=== PATIENT | female | born 1960 | race African-American/Black ===

== ENCOUNTER 2016-11-04 17:10 | Observation (INO) | payer MEDICARE, MEDICAID ==
[~2016-11-04] VITALS: Ht 162.6 cm; Wt 174.0 kg
[~2016-11-04 17:10] MED LIST: AMLO10 PO; ASPI-110 PO; CALC667C PO; NOVO7030P2 SQ; PERC5TAB12 PO; PLAV75TA29 PO; PRAV20TA2 PO
[2016-11-04 17:22] VITALS: BP 174/83; PULSE 76; RESP 16; TEMP 98.4; O2SAT 99
[2016-11-04] MEDS ORDERED: SODIUM CHLORIDE 0.9% FLUSH 10 ML FLUSH IVF PRN (17:45)
[2016-11-04] MEDS ORDERED: VITA100018 PO (17:51)
[2016-11-04] MEDS ORDERED: HUMU70IN SQ (17:51)
[2016-11-04] MEDS ORDERED: PANT40TA3 PO (17:51)
[2016-11-04 18:14] LABS: AUTOMATED NEUTROPHIL # 3.2 TH/MM3 (1.8-7.7); BASOPHIL % 0.8 % (0.0-2.0); EOSINOPHIL # 0.3 TH/MM3 (0-0.4); EOSINOPHIL % 4.1 % (0.0-4.0); HEMATOCRIT 36.4 % (35.0-46.0); HEMO FLAGS DIFF FINAL; LYMPH % 35.2 % (9.0-44.0); LYMPHOCYTE # 2.3 TH/MM3 (1.0-4.8); MEAN CELL VOLUME 90.5 FL (80.0-100.0); MEAN CORPUSCULAR HGB CONC 33.2 % (32.0-36.0); MONO % 10.9 % (0.0-8.0); PLATELET COUNT 135 TH/MM3 (150-450); RED BLOOD COUNT 4.02 MIL/MM3 (4.00-5.30); RED CELL DISTRIBUTION WIDTH 13.9 % (11.6-17.2); WHITE BLOOD COUNT 6.5 TH/MM3 (4.0-11.0)
--- NOTE | 2016-11-04 18:19 | PD ---
HPI Chief Complaint: Cardiac Complaint Time Seen by Provider: 17:30 Travel History International Travel<30 days: No Contact w/Intl Traveler<30days: No Traveled to known affect area: No History of Present Illness HPI Patient comes in complaining of sharp stabbing left-sided chest pain that began approximately an hour after being at dialysis today. Patient states she's been having intermittent chest pain over the past month and scheduled see a joint runner but has not seen one yet, but does have an appointment. Patient denies any associated shortness of breath this, nausea, vomiting, headache, or numbness or tingling anywhere. Patient's also supposed to be seeing a head sampler but has not yet secondary to some "spot" on her lung. Patient reports chest pain was resolved with nitroglycerin she was given while at dialysis today and has not had any chest pain since. Patient reports she does take an aspirin a day and that she did take it today. Patient states she's never had a cardiac catheter that she is aware and her last stress test was done here in 2011. PFSH Past Medical History Hx Anticoagulant Therapy: Yes (PLAVIX) Arthritis: Yes Asthma: No Autoimmune Disease: No Blood Disorders: No Bipolar Disorder: Yes Anxiety: Yes Depression: No Heart Rhythm Problems: No Cancer: No Cardiovascular Problems: No High Cholesterol: No Chest Pain: Yes COPD: No Cerebrovascular Accident: Yes (LEFT CVA 2014) Diabetes: Yes Patient Takes Glucophage: No Diminished Hearing: No Endocrine: Yes Gastrointestinal Disorders: Yes (PAIN IN ABD) GERD: Yes Genitourinary: Yes (end stage kidney failure) Hepatitis: Yes (hep c and has been treated) Hiatal Hernia: No Hypertension: Yes Immune Disorder: No Implanted Vascular Access Dvce: No Musculoskeletal: Yes (arthritis occ back pain) Neurologic: Yes (stroke,numbness to left hand) Psychiatric: Yes (occ anxiety) Reproductive: Yes (hx of hysterectomy) Respiratory: No Immunizations Current: Yes Myocardial Infarction: No Renal Failure: Yes Thyroid Disease: No Ulcer: Yes Menopausal: Yes : 0 Past Surgical History Abdominal Surgery: No AICD: No Appendectomy: No Arteriovenous Shunt: No Body Medical Devices: fistula in the left arm Cardiac Surgery: No Cholecystectomy: No Ear Surgery: No Endocrine Surgery: No Eye Surgery: No Genitourinary Surgery: No Gynecologic Surgery: Yes (hysterectomy) Hysterectomy: Yes Insulin Pump: No Joint Replacement: No Neurologic Surgery: No Oral Surgery: No Pacemaker: No Thoracic Surgery: Yes (PERMACATH TO RIGHT CHEST) Other Surgery: Yes (left upper arm fistula) Social History Alcohol Use: No ( ) Tobacco Use: No (QUIT 1 MONTH AGO) Substance Use: No Allergies-Medications (Allergen,Severity, Reaction): Coded Allergies: *MDRO Multi-Drug Resistant Organism (Verified Adverse Reaction, Unknown, ) MRSA abdomen 04/2003. MRSA PCR Screen negative 12/19/14 and 12/21/14. Cleared per Infection Control. Reported Meds & Prescriptions Reported Meds & Active Scripts Active Reported Vitamin D3 (Cholecalciferol) 1,000 Unit Tab 1,000 Units PO DAILY Pantoprazole (Pantoprazole Sodium) 40 Mg Tab 40 Mg PO DAILY Humulin 70-30 Inj (Insulin NPH Isophane-Reg (Human) 70-30 Inj) 1,000 Unit/10 Ml Vial 15 Units SQ DAILY Pravastatin 20 Mg Tab 20 Mg PO DAILY Percocet (Oxycodone-Acetaminophen) 5-325 mg Tab 1 Tab PO Q6H PRN Calcium Acetate (Calcium Acetate (Phosphate Bin) 667 Mg Cap 667 Mg PO 5 TIMES A DAY Aspirin 81 (Aspirin) 81 Mg Tabdr 81 Mg PO DAILY Norvasc (Amlodipine Besylate) 10 Mg Tab 10 Mg PO DAILY Review of Systems Except as stated in HPI: all other systems reviewed are Neg Physical Exam Narrative GENERAL: Well-developed, overly nourished, in no acute distress, and non-ill appearing. SKIN: Focused skin assessment warm and dry. HEAD: Atraumatic. Normocephalic. EYES: Pupils equal and round. EOMI. No scleral icterus. No injection or drainage. ENT: No nasal bleeding or discharge. Mucous membranes pink and moist. NECK: Trachea midline. Supple. No nuclear rigidity. CARDIOVASCULAR: Regular rate and rhythm. Murmur appreciated. RESPIRATORY: No accessory muscle use. No respiratory distress. Clear to auscultation. Breath sounds equal bilaterally. MUSCULOSKELETAL: No obvious deformities. No clubbing. No cyanosis. No edema. Full range of motion. NEUROLOGICAL: Awake and alert. No obvious cranial nerve deficits. Motor grossly within normal limits. Normal speech. PSYCHIATRIC: Appropriate mood and affect; insight and judgment normal. Data Data Last Documented VS Vital Signs Date Time Temp Pulse Resp B/P Pulse Ox O2 Delivery O2 Flow Rate FiO2 11/04/16 18:10 Room Air 11/04/16 17:22 98.4 76 16 174/83 99 Orders Electrocardiogram (11/04/16 17:40) Basic Metabolic Panel (Bmp) (11/04/16 17:40) Ckmb (Isoenzyme) Profile (11/04/16 17:40) Complete Blood Count With Diff (11/04/16 17:40) Magnesium (Mg) (11/04/16 17:40) Prothrombin Time / Inr (Pt) (11/04/16 17:40) Act Partial Throm Time (Ptt) (11/04/16 17:40) Troponin I (11/04/16 17:40) Chest, Single Ap (11/04/16:40) Ecg Monitoring (11/04/16 17:40) Bilateral Bp Monitoring (11/04/16 17:40) Iv Access Insert/Monitor (11/04/16 17:40) Oximetry (11/04/16 17:40) Oxygen Administration (11/04/16 17:40) Sodium Chloride 0.9% Flush (Ns Flush) (11/04/16 17:45) CKMB (11/04/16 18:00) CKMB% (11/04/16 18:00) Admit Order (Ed Use Only) (11/04/16 18:54) Labs Laboratory Tests Test 11/04/16 18:00 White Blood Count 6.5 TH/MM3 Red Blood Count 4.02 MIL/MM3 Hemoglobin 12.1 GM/DL Hematocrit 36.4 % Mean Corpuscular Volume 90.5 FL Mean Corpuscular Hemoglobin 30.0 PG Mean Corpuscular Hemoglobin 33.2 % Concent Red Cell Distribution Width 13.9 % Platelet Count 135 TH/MM3 Mean Platelet Volume 9.9 FL Neutrophils (%) (Auto) 49.0 % Lymphocytes (%) (Auto) 35.2 % Monocytes (%) (Auto) 10.9 % Eosinophils (%) (Auto) 4.1 % Basophils (%) (Auto) 0.8 % Neutrophils # (Auto) 3.2 TH/MM3 Lymphocytes # (Auto) 2.3 TH/MM3 Monocytes # (Auto) 0.7 TH/MM3 Eosinophils # (Auto) 0.3 TH/MM3 Basophils # (Auto) 0.0 TH/MM3 CBC Comment DIFF FINAL Differential Comment Prothrombin Time 11.5 SEC Prothromb Time International 1.0 RATIO Ratio Activated Partial 31.5 SEC Thromboplast Time Sodium Level 139 MEQ/L Potassium Level 4.3 MEQ/L Chloride Level 104 MEQ/L Carbon Dioxide Level 26.0 MEQ/L Anion Gap 9 MEQ/L Blood Urea Nitrogen 67 MG/DL Creatinine 4.53 MG/DL Estimat Glomerular Filtration 12 ML/MIN Rate Random Glucose 70 MG/DL Calcium Level 8.6 MG/DL Magnesium Level 2.3 MG/DL Total Creatine Kinase 193 U/L Creatine Kinase MB 3.8 NG/ML Creatine Kinase MB % 2.0 % Troponin I LESS THAN 0.02 NG/ML Exceptions Acute Myocardial Infarction ASA Not Given on Arrival: Already taken by patient MDM Medical Decision Making Medical Screen Exam Complete: Yes Emergency Medical Condition: Yes Interpretation(s) EKG reviewed by Dr. Green shows sinus rhythm with ventricular rate of 68. No STEMI. Differential Diagnosis Acute coronary syndrome, pneumonia, atypical chest pain, electrolyte abnormality , other Narrative Course Patient seen and examined. Laboratory and reflexes were obtained and reviewed. Patient remained comfortable and stable throughout ED course. Discussed patient with Dr. Green, who is in agreement with plan of care and disposition of placing the patient and the chest pain center. Discussed all findings and plan care of patient, who is in agreement with plan of care and disposition. All questions were answered. Patient remains stable throughout ED course. Diagnosis Primary Impression: Chest pain Qualified Code: R07.9 - Chest pain, unspecified type Admitting Information Admitting Physician Requests: Observation Condition: Stable Sinan Gaona November 04, 2016 18:19
--- NOTE | 2016-11-04 18:27 | RADRPT ---
EXAM DATE/TIME: 11/04/2016 17:57 [facility] COMPARISON: CHEST SINGLE AP, March 04, 2016, 13:25. INDICATIONS : Chest pain x 1 month worst today. MEDICAL HISTORY : Renal failure, chronic. Hepatitis C. Hypertension. Diabetes. SURGICAL HISTORY : Hysterectomy. ENCOUNTER: Initial ACUITY: 1 day PAIN SCORE: 5/10 LOCATION: Bilateral chest FINDINGS: A single view of the chest demonstrates the lungs to be symmetrically aerated without evidence of mas s, infiltrate or effusion. The cardiomediastinal contours are unremarkable. Osseous structures are intact.CONCLUSION: No acute disease. Thomas Wu MD on November 04, 2016 at 18:25 Board Certified Radiologist. This report was verified electronically.
[2016-11-04 18:28] LABS: APTT (PATIENT) 31.5 SEC (24.3-30.1); PROTHROMBIN TIME - PATIENT 11.5 SEC (9.8-11.6)
[2016-11-04 18:34] LABS: ANION GAP 9 MEQ/L (5-15); BLOOD UREA NITROGEN 67 MG/DL (7-18); CHLORIDE 104 MEQ/L (98-107); GLOMERULAR FILTRATION RATE 12 ML/MIN (>89); MAGNESIUM 2.3 MG/DL (1.5-2.5); POTASSIUM 4.3 MEQ/L (3.5-5.1); SODIUM (NA) 139 MEQ/L (136-145)
[2016-11-04 18:38] LABS: CREATINE KINASE 193 U/L (26-192)
[2016-11-04 18:50] LABS: CKMB 3.8 NG/ML (0.5-3.6)
[2016-11-04] MEDS ORDERED: SODIUM CHLORIDE 0.9% FLUSH 10 ML FLUSH IV FLUSH PRN (19:00)
[2016-11-04 19:34] VITALS: O2SAT 100
[2016-11-04 20:19] VITALS: BP 160/79; PULSE 75; RESP 20; TEMP 98.1; O2SAT 98
[2016-11-04 20:55] VITALS: PULSE 74
[2016-11-04] MEDS: SODIUM CHLORIDE 0.9% FLUSH 10 ML FLUSH IV FLUSH SCH (21:29)
[2016-11-04 22:46] LABS: CKMB 3.3 NG/ML (0.5-3.6)
[2016-11-05] VITALS (8 sets, daily range): BP systolic 78–172; BP diastolic 45–95; PULSE 63–79; RESP 16–18; TEMP 96.2–97.9; O2SAT 95–100
[2016-11-05 01:33] LABS: CREATINE KINASE 181 U/L (26-192)
[2016-11-05 01:45] LABS: CKMB 2.8 NG/ML (0.5-3.6)
--- NOTE | 2016-11-05 05:44 | EKG ---
Date Performed: 11/04/2016 Time Performed: 21:02:13 PTAGE: 56 years EKG: Sinus rhythm SEPTAL Q WAVES ABNORMAL ECG PREVIOUS TRACING : 11/04/2016 17.55 Compared to the previous tracing septal Q waves present DOCTOR: Colton Coronado Interpretating Date/Time 11/05/2016 05:44:16
--- NOTE | 2016-11-05 05:50 | EKG ---
Date Performed: 11/04/2016 Time Performed: 17:55:42 PTAGE: 56 years EKG: Sinus rhythm NORMAL ECG PREVIOUS TRACING : 01/26/2016 21.52 Compared to prior tracing no significant change DOCTOR: Colton Coronado Interpretating Date/Time 11/05/2016 05:49:28
[2016-11-05] MEDS ORDERED: oxyCODONE/ACETAMINOPHEN 5 MG/325 MG TAB PO PRN (08:00)
--- NOTE | 2016-11-05 08:23 | HHI.HP ---
HPI Primary Care Physician Thomas Morales MD Chief Complaint Chest pain History of Present Illness This is a 56-year-old female with history of renal failure that presents with a complaint of one month of intermittent left-sided sharp chest pain. She states the pains will last a few seconds but come back a lot. She states that yesterday the intensity was so much more while she is having dialysis. She states that she was given subluminal nitroglycerin while in dialysis and the discomfort resolved and when the sharp pains would recur afterwards are much less intense. Denies shortness red nausea diaphoresis with the symptoms. Denies history of CAD. Denies recent illnesses. Review of Systems General: Patient denies fevers, chills recent, and recent travel HEENT: Patient denies headache, sore throat, difficulty swallowing. Cardiovascular: Has the chest discomfort as mentioned above. Denies sensation of heart beating rapidly or irregularly. No syncope. Denies diaphoresis. Respiratory: Denies shortness of breath or inspirational chest discomfort. Denies coughing wheezing or hemoptysis. GI: Patient denies nausea, vomiting, diarrhea, abdominal pain, bloody stools. Musculoskeletal: Patient denies joint pain or edema. Denies calf pain or edema. Neurovascular: Patient denies numbness, tingling, weakness in extremities. Denies headache. Endocrine: Denies polyuria and polydipsia. Hematologic: Denies easy bruising. Skin: Denies rash or itching. Past Family Social History Allergies: Coded Allergies: *MDRO Multi-Drug Resistant Organism (Verified Adverse Reaction, Unknown, ) MRSA abdomen 04/2003. MRSA PCR Screen negative 12/19/14 and 12/21/14. Cleared per Infection Control. Past Medical History Renal failure with dialysis on Tuesdays, , and Saturdays. Hypertension , diabetes, hyperlipidemia, tobacco abuse. Denies known CAD. Past Surgical History Nephrectomy. Fistula in her left arm for dialysis. Hysterectomy. Patient had a nonischemic adenosine thallium stress test in October 2011. Reported Medications Reported Meds & Active Scripts Active Reported Vitamin D3 (Cholecalciferol) 1,000 Unit Tab 1,000 Units PO DAILY Pantoprazole (Pantoprazole Sodium) 40 Mg Tab 40 Mg PO DAILY Humulin 70-30 Inj (Insulin NPH Isophane-Reg (Human) 70-30 Inj) 1,000 Unit/10 Ml Vial 15 Units SQ DAILY Pravastatin 20 Mg Tab 20 Mg PO DAILY Percocet (Oxycodone-Acetaminophen) 5-325 mg Tab 1 Tab PO Q6H PRN Calcium Acetate (Calcium Acetate (Phosphate Bin) 667 Mg Cap 667 Mg PO 5 TIMES A DAY Aspirin 81 (Aspirin) 81 Mg Tabdr 81 Mg PO DAILY Norvasc (Amlodipine Besylate) 10 Mg Tab 10 Mg PO DAILY Active Ordered Medications Current Medications Medications (Trade) Dose Ordered Sig/Mya Route Start Time Stop Time Status Last Admin (NS Flush) 2 ml UNSCH PRN IVF 11/04/16 17:45 (NS Flush) 2 ml UNSCH PRN IV FLUSH 11/04/16 19:00 (NS Flush) 2 ml BID IV FLUSH 11/04/16 21:00 11/04/16 21:29 (Norvasc) 10 mg DAILY PO 11/05/16 09:00 UNV (Protonix) 40 mg DAILY PO 11/05/16 09:00 UNV (Pravachol) 20 mg DAILY PO 11/05/16 09:00 UNV (Percocet 5-325 Mg) 1 tab Q6H PRN PO 11/05/16 08:00 UNV Family History She states that her twin sister at age 32 a myocardial infarction. Social History Patient is trying to quit smoking. She has been smoking 2 cigarettes a day for last 2 months but prior that she smoked a little more than one half pack of cigarettes daily for 50 years. She denies alcohol or illicit drugs. Physical Exam Vital Signs Vital Signs Date Time Temp Pulse Resp B/P Pulse Ox O2 Delivery O2 Flow Rate FiO2 11/05/16 04:41 96.2 71 18 172/83 95 11/05/16 04:00 64 11/05/16 00:48 63 11/05/16 00:13 96.4 73 18 126/79 96 11/04/16 20:55 74 11/04/16 20:19 98.1 75 20 160/79 98 11/04/16 19:34 100 11/04/16 18:10 Room Air 11/04/16 18:10 Room Air 11/04/16 17:25 Room Air 11/04/16 17:22 98.4 76 16 174/83 99 Physical Exam GENERAL: This is a well-nourished, well-developed patient, in no apparent distress. Patient speaks in clear complete sentences. Patient is pleasant. HEENT: Head is atraumatic and normocephalic. Neck is supple without lymphadenopathy and trachea is midline. No JVD or carotid bruits. CARDIOVASCULAR: Regular rate and rhythm without murmurs, gallops, or rubs. RESPIRATORY: Clear to auscultation. Breath sounds equal bilaterally. No wheezes , rales, or rhonchi. Chest wall is nontender. No use of accessory muscles. GASTROINTESTINAL: Abdomen is nontender, nondistended. Abdomen soft. No obvious pulsatile mass or bruit. No CVA tenderness. Strong femoral pulses bilaterally. Normal bowel sounds in all quadrants. MUSCULOSKELETAL: Patient is moving upper and lower extremities freely. No calf tenderness or edema, no Homans sign. Strong pulses in upper and lower extremities. NEUROLOGICAL: Patient is alert and oriented. Cranial nerves 2-12 are grossly intact. No focal deficits and speech is clear. SKIN: No rash and turgor is normal. Laboratory Laboratory Tests Test 11/04/16 11/04/16 11/05/16 18:00 21:20 00:20 White Blood Count 6.5 Red Blood Count 4.02 Hemoglobin 12.1 Hematocrit 36.4 Mean Corpuscular Volume 90.5 Mean Corpuscular Hemoglobin 30.0 Mean Corpuscular Hemoglobin 33.2 Concent Red Cell Distribution Width 13.9 Platelet Count 135 Mean Platelet Volume 9.9 Neutrophils (%) (Auto) 49.0 Lymphocytes (%) (Auto) 35.2 Monocytes (%) (Auto) 10.9 Eosinophils (%) (Auto) 4.1 Basophils (%) (Auto) 0.8 Neutrophils # (Auto) 3.2 Lymphocytes # (Auto) 2.3 Monocytes # (Auto) 0.7 Eosinophils # (Auto) 0.3 Basophils # (Auto) 0.0 CBC Comment DIFF FINAL Differential Comment Prothrombin Time 11.5 Prothromb Time International 1.0 Ratio Activated Partial 31.5 Thromboplast Time Sodium Level 139 Potassium Level 4.3 Chloride Level 104 Carbon Dioxide Level 26.0 Anion Gap 9 Blood Urea Nitrogen 67 Creatinine 4.53 Estimat Glomerular Filtration 12 Rate Random Glucose 70 Calcium Level 8.6 Magnesium Level 2.3 Total Creatine Kinase 193 197 181 Creatine Kinase MB 3.8 3.3 2.8 Creatine Kinase MB % 2.0 1.7 Troponin I LESS THAN 0.02 0.02 0.02 Result Diagram: 11/04/16 1800 11/04/16 1800 Imaging Last 24 hours Impressions Chest X-Ray 11/04/16 1740 Signed Impressions: Service Date/Time: Friday, November 04, 2016 17:57 - CONCLUSION: No acute disease. Thomas Wu MD Course EKGs have sinus rhythm without significant ST segment depressions or elevations. Assessment and Plan Assessment and Plan * Chest pain: Patient has had serial cardiac enzymes and EKGs for ruling out purposes. She has been seen by Dr. Hoang Sheppard of cardiology in the chest pain center. She will undergo a Lexiscan, she'll be discharged home if the Lexiscan is nonischemic. She should follow-up with her physicians. * Renal failure: Patient has dialysis on Tuesdays and Saturdays. She should continue this. * Hypertension: Continue current medication. * Hyperlipidemia: Continue current medication. * Diabetes: Patient states takes no medications time. She should follow a diabetic diet. She will be on insulin sliding scale coverage while the chest pain center. * Tobacco abuse: Patient has been counseled on importance of smoking cessation. Patient is stable this time. She is agreeable to this plan. Boogie Segura November 05, 2016 08:23
[2016-11-05] MEDS ORDERED: PANTOPRAZOLE SOD 40 MG DELAYED RELEASE TAB PO SCH (09:00)
[2016-11-05] MEDS ORDERED: PRAVASTATIN SOD 20 MG TAB PO SCH (09:00)
[2016-11-05] MEDS ORDERED: REGADENOSON INJ 0.4 MG/5 ML SYR ONE (09:55)
[2016-11-05] MEDS ORDERED: CALCIUM ACETATE 667 MG CAP PO SCH (10:00)
[2016-11-05] MEDS ORDERED: GLUCAGON 1 MG/ML VIAL IM/SQ PRN (11:30)
[2016-11-05] MEDS ORDERED: DEXTROSE 50% IN WATER 50 ML VIAL(D50) IV PRN (11:30)
--- NOTE | 2016-11-05 11:43 | RADRPT ---
EXAM DATE/TIME: 11/05/2016 08:59 [facility] COMPARISON: MYOCARDIAL PERF PHARM SPECT, GATED W/EF, November 04, 2011, 10:27. INDICATIONS : Left chest pain for 1 month. Angina. DOSE: 26.1 mCi Tc99m Myoview at stress. 8.3 mCi Tc99m Myoview at rest. 0.4 mg Lexiscan STRESS SYMPTOMS: Tired feeling. EJECTION FRACTION: 48% MEDICAL HISTORY : Hypercholesterolemia. Hypertension. Gastroesophageal reflux disease. Smoker. SURGICAL HISTORY : Hysterectomy. ENCOUNTER: Initial ACUITY: 1 month PAIN SCALE: 5/10 LOCATION: Left chest TECHNIQUE: The patient underwent pharmacologic stress with infusion of prescribed dose. Continuous ECG tracing was monitored during stress. Gated SPECT imaging was performed after stress and conventional SPECT i maging was performed at rest. The examination was performed on a SPECT/CT scanner, both attenuation and non-corrected datasets were reviewed. FINDINGS: The best perfused myocardium is the septum followed by the inferior wall. There is very minimal redi stribution in the mid anterior myocardium of borderline significance. The ejection fraction is minim ally depressed at 48%. This represents the change from the comparison study. CONCLUSION: Minimal stress-induced ischemia mid anterior myocardium of borderline significance. Depression of th e ejection fraction to 48%, changed from the comparison study. RISK CATEGORY: Low (<1% Annual Mortality Rate) David Ramon MD FACR on November 05, 2016 at 11:36 Board Certified Radiologist. This report was verified electronically.
[2016-11-05] MEDS: SODIUM CHLORIDE 0.9% FLUSH 10 ML FLUSH IV FLUSH SCH (11:45)
--- NOTE | 2016-11-05 11:56 | HHI.DCPOC ---
Discharge Care Plan Diagnosis: (1) Chest pain (2) Hypertension (3) Hyperlipidemia (4) Diabetes mellitus (5) ESRD (end stage renal disease) (6) Dialysis patient Goals to Promote Your Health Continue scheduled dialysis. * To prevent worsening of your condition and complications * To maintain your health at the optimal level Directions to Meet Your Goals Take your medications as prescribed Follow your dietary instruction Follow activity as directed Keep your appointments as scheduled Take your immunizations and boosters as scheduled If your symptoms worsen call your PCP, if no PCP go to Urgent Care Center or Emergency Room Smoking is Dangerous to Your Health. Avoid second hand smoke Call the 24-hour hour crisis hotline for domestic abuse at Boogie Segura November 05, 2016 11:56
--- NOTE | 2016-11-05 14:07 | EKG ---
Date Performed: 11/05/2016 Time Performed: 00:17:13 PTAGE: 56 years EKG: Sinus rhythm ABNORMAL ECG PREVIOUS TRACING : 11/04/2016 21.02 Since previous tracing, no significant change noted DOCTOR: Hoang Sheppard Interpretating Date/Time 11/05/2016 14:06:08
--- NOTE | 2016-11-05 14:38 | TR ---
Date Performed: 11/05/2016 Time Performed: 09:59:10 DOCTOR: Hoang Sheppard DRUG LIST: CLINICAL HISTORY: REASON FOR TEST: Angina REASON FOR ENDING: OBSERVATION: CONCLUSION: Lexiscan stress test was performed under standard four minute protocol. Radionuclid e was injected one minute prior to ending the test. No electrocardiographic abormalities were present to suggest ischemia. Nuclear imaging and interpretation are pending. COMMENTS:
[2016-11-05] MEDS ORDERED: INSULIN ASPART SUPPLEMENTAL SCALE SQ SCH (16:00)
== END 2016-11-05 14:02 | disposition home or self-care (01) ==
LOC: NEPE 17:10 → NEDA 18:55 → NEPFCDU 20:07
PROVIDERS: ADMIT Internal Medicine Interventional Cardiology; ATTEND Internal Medicine Interventional Cardiology
DX: R07.89 Other chest pain (principal); I12.0 Hypertensive chronic kidney disease with stage 5 chronic kidney disease or end stage renal disease; N18.6 End stage renal disease; E11.22 Type 2 diabetes mellitus with diabetic chronic kidney disease; E78.5 Hyperlipidemia, unspecified; F17.210 Nicotine dependence, cigarettes, uncomplicated; K21.9 Gastro-esophageal reflux disease without esophagitis; M19.90 Unspecified osteoarthritis, unspecified site; Z79.4 Long term (current) use of insulin; Z79.82 Long term (current) use of aspirin; Z99.2 Dependence on renal dialysis; Z90.5 Acquired absence of kidney; Z88.8 Allergy status to other drugs, medicaments and biological substances; Z86.73 Personal history of transient ischemic attack (TIA), and cerebral infarction without residual deficits; Z82.49 Family history of ischemic heart disease and other diseases of the circulatory system
CPT/HCPCS: 71010; 78452; 80048; 82550; 82552; 82948; 83735; 84484; 85025; 85610; 85730; 93005; 93017; 99285; A9502; G0378; J2785

== ENCOUNTER 2017-04-11 14:24 | Observation (INO) | payer MEDICARE, MEDICAID ==
[~2017-04-11] VITALS: Ht 154.9 cm; Wt 77.0 kg
[2017-04-11] VITALS (10 sets, daily range): BP systolic 127–192; BP diastolic 64–95; PULSE 62–75; RESP 16–18; TEMP 97.7–97.9; O2SAT 97–100
[~2017-04-11 14:24] MED LIST changes: +HUMU70IN SQ; -NOVO7030P2 SQ; +PANT40TA3 PO; -PLAV75TA29 PO; +VITA100018 PO
--- NOTE | 2017-04-11 16:28 | PD ---
HPI Chief Complaint: Pain: Acute or Chronic Time Seen by Provider: 15:31 Travel History International Travel<30 days: No Contact w/Intl Traveler<30days: No Traveled to known affect area: No History of Present Illness HPI 57-year-old female with history of hypertension, end-stage renal disease on dialysis, DM. Reporting left scapular pain that radiates to the chest. She reports intermittent episodes of this pain since Thursday. Today after dialysis the pain intensified prompting her visit to the emergency department. She reports the pain is currently resolved. Patient denies any associated shortness of breath this, nausea, vomiting, headache, or numbness or tingling anywhere. PFSH Past Medical History Hx Anticoagulant Therapy: Yes (PLAVIX) Arthritis: Yes Asthma: No Autoimmune Disease: No Blood Disorders: No Bipolar Disorder: Yes Anxiety: Yes Depression: No Heart Rhythm Problems: No Cancer: No Cardiovascular Problems: No High Cholesterol: No Chest Pain: Yes COPD: No Cerebrovascular Accident: Yes (LEFT CVA 2014) Diabetes: Yes Diminished Hearing: No Endocrine: Yes Gastrointestinal Disorders: Yes (PAIN IN ABD) GERD: Yes Genitourinary: Yes (end stage kidney failure) Hepatitis: Yes (hep c and has been treated) Hiatal Hernia: No Hypertension: Yes Immune Disorder: No Implanted Vascular Access Dvce: No Musculoskeletal: Yes (arthritis occ back pain) Neurologic: Yes (stroke,numbness to left hand) Psychiatric: Yes (occ anxiety) Reproductive: Yes (hx of hysterectomy) Respiratory: No Immunizations Current: Yes Myocardial Infarction: No Renal Failure: Yes Thyroid Disease: No Ulcer: Yes ?: Not Menopausal: Yes : 0 Past Surgical History Abdominal Surgery: No AICD: No Appendectomy: No Arteriovenous Shunt: No Body Medical Devices: fistula in the left arm Cardiac Surgery: No Cholecystectomy: No Ear Surgery: No Endocrine Surgery: No Eye Surgery: No Genitourinary Surgery: No Gynecologic Surgery: Yes (hysterectomy) Hysterectomy: Yes Insulin Pump: No Joint Replacement: No Neurologic Surgery: No Oral Surgery: No Pacemaker: No Thoracic Surgery: Yes (PERMACATH TO RIGHT CHEST) Other Surgery: Yes (left upper arm fistula) Social History Alcohol Use: No ( ) Tobacco Use: Yes Substance Use: No Allergies-Medications (Allergen,Severity, Reaction): Coded Allergies: *MDRO Multi-Drug Resistant Organism (Verified Adverse Reaction, Unknown, ) MRSA abdomen 04/2003. MRSA PCR Screen negative 12/19/14 and 12/21/14. Cleared per Infection Control. Reported Meds & Prescriptions Reported Meds & Active Scripts Active Reported Vitamin D3 (Cholecalciferol) 1,000 Unit Tab 1,000 Units PO DAILY Pantoprazole (Pantoprazole Sodium) 40 Mg Tab 40 Mg PO DAILY Humulin 70-30 Inj (Insulin NPH Isophane-Reg (Human) 70-30 Inj) 1,000 Unit/10 Ml Vial 15 Units SQ DAILY Pravastatin 20 Mg Tab 20 Mg PO DAILY Percocet (Oxycodone-Acetaminophen) 5-325 mg Tab 1 Tab PO Q6H PRN Calcium Acetate (Calcium Acetate (Phosphate Bin) 667 Mg Cap 667 Mg PO 5 TIMES A DAY Aspirin 81 (Aspirin) 81 Mg Tabdr 81 Mg PO DAILY Norvasc (Amlodipine Besylate) 10 Mg Tab 10 Mg PO DAILY Review of Systems Except as stated in HPI: all other systems reviewed are Neg General / Constitutional: No: Fever Eyes: No: Visual changes HENT: No: Headaches Cardiovascular: Positive: Chest Pain or Discomfort Respiratory: No: Shortness of Breath Gastrointestinal: No: Abdominal Pain Genitourinary: No: Dysuria Physical Exam Narrative GENERAL: Alert well-appearing female in no acute distress. SKIN: Focused skin assessment warm/dry. HEAD: Atraumatic. Normocephalic. EYES: Pupils equal and round. No scleral icterus. No injection or drainage. ENT: No nasal bleeding or discharge. Mucous membranes pink and moist. NECK: Trachea midline. No JVD. CARDIOVASCULAR: Regular rate and rhythm. No murmur appreciated. RESPIRATORY: No accessory muscle use. Clear to auscultation. Breath sounds equal bilaterally. GASTROINTESTINAL: Abdomen soft, non-tender, nondistended. Hepatic and splenic margins not palpable. MUSCULOSKELETAL: No obvious deformities. No clubbing. No cyanosis. No edema. Patient has mild palpable tenderness to the left scapular region NEUROLOGICAL: Awake and alert. No obvious cranial nerve deficits. Motor grossly within normal limits. Normal speech. PSYCHIATRIC: Appropriate mood and affect; insight and judgment normal. Data Data Last Documented VS Vital Signs Date Time Temp Pulse Resp B/P (MAP) Pulse Ox O2 Delivery O2 Flow Rate FiO2 04/11/17 18:00 72 16 175/95 (121) 99 Room Air 04/11/17 16:45 2.00 04/11/17 14:25 97.7 Orders Orders Electrocardiogram (04/11/17 15:48) Basic Metabolic Panel (Bmp) (04/11/17 16:24) Ckmb (Isoenzyme) Profile (04/11/17 16:24) Complete Blood Count With Diff (04/11/17 16:24) Magnesium (Mg) (04/11/17 16:24) Prothrombin Time / Inr (Pt) (04/11/17 16:24) Act Partial Throm Time (Ptt) (04/11/17 16:24) Troponin I (04/11/17 16:24) Chest, Single Ap (04/11/17 16:24) Ecg Monitoring (04/11/17 16:24) Bilateral Bp Monitoring (04/11/17 16:24) Iv Access Insert/Monitor (04/11/17 16:24) Oximetry (04/11/17 16:24) Oxygen Administration (04/11/17 16:24) Sodium Chloride 0.9% Flush (Ns Flush) (04/11/17 16:30) Aspirin (Aspirin) (04/11/17 17:15) CKMB (04/11/17 16:45) CKMB% (04/11/17 16:45) Place In Observation (04/11/17 18:02) Activity Bed Rest With Brp (04/11/17 18:02) Vital Signs (Adult) Q4H (04/11/17 18:02) Cardiac Rhythm .As Directed (04/11/17 18:02) Notify Dr: Other .PRN (04/11/17 18:02) Notify Parameters (04/11/17 18:02) Resp Oxygen Nasal Cannula (04/11/17 ) Diet Npo (04/11/17 Dinner) Ckmb (Isoenzyme) Profile (04/11/17 19:45) Ckmb (Isoenzyme) Profile (04/11/17 22:45) Troponin I (04/11/17 19:45) Troponin I (04/11/17 22:45) Electrocardiogram (04/11/17 18:02) Electrocardiogram (04/11/17 21:02) ^ Obtain (04/11/17 18:02) Sodium Chloride 0.9% Flush (Ns Flush) (04/11/17 18:15) Sodium Chloride 0.9% Flush (Ns Flush) (04/11/17 21:00) Implant Polisher / Telemetry LEISA.Q8H (04/11/17 18:02) Admit Order (Ed Use Only) (04/11/17 18:34) Acetaminophen (Tylenol) (04/11/17 18:45) Labs Laboratory Tests Test 04/11/17 16:45 White Blood Count 7.0 TH/MM3 Red Blood Count 3.92 MIL/MM3 Hemoglobin 12.3 GM/DL Hematocrit 36.1 % Mean Corpuscular Volume 92.0 FL Mean Corpuscular Hemoglobin 31.4 PG Mean Corpuscular Hemoglobin Concent 34.1 % Red Cell Distribution Width 13.7 % Platelet Count 138 TH/MM3 Mean Platelet Volume 9.3 FL Neutrophils (%) (Auto) 56.6 % Lymphocytes (%) (Auto) 31.0 % Monocytes (%) (Auto) 8.9 % Eosinophils (%) (Auto) 2.8 % Basophils (%) (Auto) 0.7 % Neutrophils # (Auto) 4.0 TH/MM3 Lymphocytes # (Auto) 2.2 TH/MM3 Monocytes # (Auto) 0.6 TH/MM3 Eosinophils # (Auto) 0.2 TH/MM3 Basophils # (Auto) 0.0 TH/MM3 CBC Comment DIFF FINAL Differential Comment Prothrombin Time 11.5 SEC Prothromb Time International Ratio 1.0 RATIO Activated Partial Thromboplast Time 26.6 SEC Blood Urea Nitrogen 28 MG/DL Creatinine 3.20 MG/DL Random Glucose 84 MG/DL Calcium Level 9.4 MG/DL Magnesium Level 1.9 MG/DL Sodium Level 136 MEQ/L Potassium Level 4.3 MEQ/L Chloride Level 102 MEQ/L Carbon Dioxide Level 25.9 MEQ/L Anion Gap 8 MEQ/L Estimat Glomerular Filtration Rate 18 ML/MIN Total Creatine Kinase 126 U/L Creatine Kinase MB 1.9 NG/ML Troponin I LESS THAN 0.02 NG/ML MDM Medical Decision Making Medical Screen Exam Complete: Yes Emergency Medical Condition: Yes Medical Record Reviewed: Yes Interpretation(s) ekg: Sinus rhythm rate of 66. No ST elevation or depression. CBC: Unremarkable BMP: Unremarkable with the exception of BUN/Creatinine 28/3.2, kidney function improved from last visit on 11/04/16 Coags: Unremarkable Troponin: <0.02 CK-MB: 1.9 Differential Diagnosis ACS, pneumonia, atypical chest pain Narrative Course 57-year-old female with history of diabetes, end-stage renal disease on dialysis , hypertension, CVA. Presents to ED with chief complaint of left scapular pain that radiates to the chest. She reports the pain as sharp/stabbing episodes are lasting less than 30 seconds. She denies shortness of breath, diaphoresis , palpitations. Patient is followed by press assistant and feeder Dr. Ambar Conrad. IV access was, and placed on continuous cardiac and pulse oximetry monitoring, labs/chest x-ray ordered and pending. CBC unremarkable BMP unremarkable with the exception of kidney function which has improved since her last visit Troponin/CK-MB: Negative Chest x-ray: No acute disease EKG: Sinus rhythm rate of [address] elevation or depression Case discussed with my attendings Dr mckinley & Dr Ornelas. The patient will be admitted to the chest pain center for serial enzymes and EKGs. This was discussed with patient who agrees to this plan. Diagnosis Primary Impression: Chest pain Qualified Codes: R07.9 - Chest pain, unspecified Yanelis Valerio Apr 11, 2017 16:28
[2017-04-11] MEDS ORDERED: SODIUM CHLORIDE 0.9% FLUSH 10 ML FLUSH IVF PRN (16:30)
--- NOTE | 2017-04-11 16:46 | RADRPT ---
EXAM DATE/TIME: 04/11/2017 16:22 [facility] COMPARISON: CHEST SINGLE AP, November 04, 2016, 17:57. INDICATIONS : Chest pain. MEDICAL HISTORY : Renal failure, chronic. Hepatitis C. Hypertension. Diabetes. SURGICAL HISTORY : Hysterectomy. ENCOUNTER: Initial ACUITY: 1 week PAIN SCORE: 10/10 LOCATION: Bilateral chest FINDINGS: A single view of the chest demonstrates the lungs to be symmetrically aerated without evidence of mas s, infiltrate or effusion. The cardiomediastinal contours are unremarkable. Osseous structures are intact. There is prominence of the aortic knob is with calcification characteristic of atheroscleroti c vascular disease. CONCLUSION: 1. No acute cardiopulmonary disease. Hoang Gould MD on April 11, 2017 at 16:45 Board Certified Radiologist. This report was verified electronically.
[2017-04-11] MEDS ORDERED: ASPIRIN 325 MG TAB PO ONE (17:15)
[2017-04-11 17:21] LABS: APTT (PATIENT) 26.6 SEC (24.3-30.1); PROTHROMBIN TIME - PATIENT 11.5 SEC (9.8-11.6)
[2017-04-11 17:22] LABS: BASOPHIL % 0.7 % (0.0-2.0); EOSINOPHIL # 0.2 TH/MM3 (0-0.4); EOSINOPHIL % 2.8 % (0.0-4.0); HEMATOCRIT 36.1 % (35.0-46.0); HEMO FLAGS DIFF FINAL; LYMPHOCYTE # 2.2 TH/MM3 (1.0-4.8); MEAN CORPUSCULAR HEMOGLOBIN 31.4 PG (27.0-34.0); MEAN CORPUSCULAR HGB CONC 34.1 % (32.0-36.0); MONO % 8.9 % (0.0-8.0); NEUT % 56.6 % (16.0-70.0); PLATELET COUNT 138 TH/MM3 (150-450); RED BLOOD COUNT 3.92 MIL/MM3 (4.00-5.30); RED CELL DISTRIBUTION WIDTH 13.7 % (11.6-17.2)
[2017-04-11 17:31] LABS: ANION GAP 8 MEQ/L (5-15); BICARBONATE 25.9 MEQ/L (21.0-32.0); BLOOD UREA NITROGEN 28 MG/DL (7-18); CHLORIDE 102 MEQ/L (98-107); GLOMERULAR FILTRATION RATE 18 ML/MIN (>89); MAGNESIUM 1.9 MG/DL (1.5-2.5); POTASSIUM 4.3 MEQ/L (3.5-5.1); SODIUM (NA) 136 MEQ/L (136-145)
[2017-04-11 17:35] LABS: CREATINE KINASE 126 U/L (26-192)
[2017-04-11 17:47] LABS: CKMB 1.9 NG/ML (0.5-3.6)
[2017-04-11] MEDS ORDERED: SODIUM CHLORIDE 0.9% FLUSH 10 ML FLUSH IV FLUSH PRN (18:15)
[2017-04-11] MEDS ORDERED: ACETAMINOPHEN 325 MG TAB PO ONE (18:45)
[2017-04-11] MEDS ORDERED: cloNIDine HCL 0.2 MG TAB PO ONE (20:15)
[2017-04-11] MEDS ORDERED: SODIUM CHLORIDE 0.9% FLUSH 10 ML FLUSH IV FLUSH SCH (21:00)
[2017-04-11 21:15] LABS: CREATINE KINASE 150 U/L (26-192)
[2017-04-11 21:26] LABS: CKMB 1.7 NG/ML (0.5-3.6)
[2017-04-11 23:53] LABS: CREATINE KINASE 101 U/L (26-192)
[2017-04-12] VITALS (7 sets, daily range): BP systolic 137–172; BP diastolic 75–80; PULSE 66–78; RESP 16–20; TEMP 97.9–98.9; O2SAT 96–100
[2017-04-12 00:05] LABS: CKMB 1.6 NG/ML (0.5-3.6)
[2017-04-12] MEDS ORDERED: ONDANSETRON HCL 4 MG/2 ML VIAL IV PUSH PRN (08:00)
[2017-04-12] MEDS ORDERED: ACETAMINOPHEN 500 MG CPLT PO PRN (08:00)
[2017-04-12] MEDS ORDERED: NITROGLYCERIN 0.4 MG SL 25 TABS/BTL SL PRN (08:00)
--- NOTE | 2017-04-12 08:56 | HHI.HP ---
HPI Primary Care Physician Jamal Barajas M.D. Chief Complaint Chest pain History of Present Illness 57 year old female with history of ESRD, diabetes, hypertension, and CVA (2014) presents to the ER for further evaluation of left scapula and chest pain. Onset Thursday morning. Location left scapula with radiation to left anterior chest. Characterized as stabbing pain. Duration constant waxing and waning in intensity. No associated symptoms of nausea, vomiting, dyspnea, or diaphorases. No particular movement or position makes pain better or worse. Deep breathing does not make pain better or worse. No precipitating factors. No recent fall, injury, or trauma. No relieving factors. Tried muscle creams without relief. Denies similar pain in the past. Review of Systems General: No fatigue,weakness, fever, chills, recent illness, or change in appetite. Reports being in her general state of health. HEENT: No FERGUSON, no vision changes, no dysphasia CV: Continues to have chest pain as stated above. No chest pressure, palpitations, intermittent leg pain, or dizziness. RESP: No SOB, cough, sputum production, or history of asthma. Current smoker. GI: Brief nausea yesterday during dialysis, since resolved. No vomiting, bowel changes, pain, distention, melena, or blood in the stool. Occasional bowel incontinence. Reports good appetite, gaining weight, and her PCP has encouraged her not to gain too much weight recently. : Continues to urinate, no dysuria. EXT: No lower leg edema, no paraesthesias MS: No discomfort or change in ROM, ambulated independently, occassional will use a cane NEURO: History CVA 2014 denies any residual deficits. No change in memory, difficulty with balance, LOC, or motor/sensory deficits. PSYCH: No anxiety, depression, or situational stress. Denies history of bipolar disorder found in medical record. SKIN: No rashes, no concerning lesions Past Family Social History Allergies: Coded Allergies: *MDRO Multi-Drug Resistant Organism (Verified Adverse Reaction, Unknown, ) MRSA abdomen 04/2003. MRSA PCR Screen negative 12/19/14 and 12/21/14. Cleared per Infection Control. Past Medical History ESRD (,,Thu), HTN, DM, CVA (2014), Hepatitis C (cured with medication) Past Surgical History Hysterectomy, L AV fistula Reported Medications Active Reported Vitamin D3 (Cholecalciferol) 1,000 Unit Tab 1,000 Units PO DAILY Pantoprazole (Pantoprazole Sodium) 40 Mg Tab 40 Mg PO DAILY Humulin 70-30 Inj (Insulin NPH Isophane-Reg (Human) 70-30 Inj) 1,000 Unit/10 Ml Vial 15 Units SQ DAILY Pravastatin 20 Mg Tab 20 Mg PO DAILY Calcium Acetate (Calcium Acetate (Phosphate Bin) 667 Mg Cap 667 Mg PO 5 TIMES A DAY Aspirin 81 (Aspirin) 81 Mg Tabdr 81 Mg PO DAILY Norvasc (Amlodipine Besylate) 10 Mg Tab 10 Mg PO DAILY Coreg dose unknown, reports taking daily Nitro SL PRN for chest pain-reports rare use Jesse dose unknown, reports taking rarely Active Ordered Medications Current Medications Medications (Trade) Dose Ordered Sig/Mya Route Start Time Stop Time Status Last Admin (NS Flush) 2 ml UNSCH PRN IV FLUSH 04/11/17 18:15 (NS Flush) 2 ml BID IV FLUSH 04/11/17 21:00 (Tylenol) 500 mg Q4H PRN PO 04/12/17 08:00 (Zofran Inj) 4 mg Q6H PRN IV PUSH 04/12/17 08:00 (Nitrostat Sl) 0.4 mg Q5M PRN SL 04/12/17 08:00 (Aspirin) 325 mg DAILY PO 04/12/17 09:00 Family History Twin sister [place] and CABG in her early 30s. Social History Known hypertension, diabetes. Appropriately taking statin therapy. No known CAD. Current smokers, 3 cigs/daily. Reporting she never was a "heavy smoker." Denies any alcohol or illegal drug use. Ambulates independently. Has a cane, but rarely uses. States "cane slows me down." Endorses a sedentary lifestyle. Past Cardiac Testing December 2016-Cardiac catheterization (Dr. Conrad)-patient reports catheterization normal. States Dr. Conrad told her she did not have any blockages. 11/05/[id number] stress induced ischemia mild anterior myocardium of borderline significance. EF 48%. Physical Exam Vital Signs Vital Signs Date Time Temp Pulse Resp B/P (MAP) Pulse Ox O2 Delivery O2 Flow Rate FiO2 04/12/17 08:17 98.9 78 18 140/80 (100) 96 04/12/17 08:11 68 04/12/17 08:03 99 21 04/12/17 04:03 97.9 66 16 137/80 (99) 100 04/12/17 04:00 66 04/12/17 00:01 66 04/11/17 23:08 97.8 62 16 151/67 (95) 97 04/11/17 22:24 66 04/11/17 21:37 97.9 65 17 127/64 (85) 99 04/11/17 21:05 156/72 (100) 04/11/17 20:11 98 04/11/17 20:00 74 16 192/85 (120) Room Air 04/11/17 18:00 72 16 175/95 (121) 99 Room Air 04/11/17 17:00 71 16 185/90 (121) 98 Room Air 04/11/17 16:45 100 Nasal Cannula 2.00 04/11/17 16:45 16 100 Room Air 04/11/17 16:09 16 04/11/17 14:25 97.7 75 18 171/82 (111) 100 Physical Exam GENERAL: Alert WN, WD, NAD, pleasant, friendly female HEAD: NC, AT EYES: Sclera clear, conjunctiva without injection ENT: Mucous membranes pink and moist CV: RRR, 2/6 systolic murmur, no rub, no gallop, no JVD, S1-S2 no S3-S4. No carotid bruits. Chest wall pain not reproduced with palpation. Left upper arm fistula +trill +bruit RESP: Clear lungs throughout bilateral, no crackles, wheeze, rhonchi, symmetrical chest rise, nonlabored, able to speak in full sentences ABD: Soft, NT, ND, no masses, positive bowel tones BACK: No CVAT, no scoliosis EXT: Pulses +14, no dependent edema, dry skin bilateral feet MS: Normal tone 4 extremities, nontender, no obvious deformities, full range of motion NEURO: CN II through CN XII grossly intact, motor strength 5/5 PSYCH: A+O 3, pleasant affect, appropriate speech, appropriate mood and affect , insight and judgment SKIN: Normal turgor, normal texture, no lesions, no rashes, sluggish cap refill , clubbing, decrease hair distribution bilateral lower extremities Laboratory Laboratory Tests Test 04/11/17 16:45 04/11/17 19:54 04/11/17 22:00 White Blood Count 7.0 Red Blood Count 3.92 Hemoglobin 12.3 Hematocrit 36.1 Mean Corpuscular Volume 92.0 Mean Corpuscular Hemoglobin 31.4 Mean Corpuscular Hemoglobin Concent 34.1 Red Cell Distribution Width 13.7 Platelet Count 138 Mean Platelet Volume 9.3 Neutrophils (%) (Auto) 56.6 Lymphocytes (%) (Auto) 31.0 Monocytes (%) (Auto) 8.9 Eosinophils (%) (Auto) 2.8 Basophils (%) (Auto) 0.7 Neutrophils # (Auto) 4.0 Lymphocytes # (Auto) 2.2 Monocytes # (Auto) 0.6 Eosinophils # (Auto) 0.2 Basophils # (Auto) 0.0 CBC Comment DIFF FINAL Differential Comment Prothrombin Time 11.5 Prothromb Time International Ratio 1.0 Activated Partial Thromboplast Time 26.6 Blood Urea Nitrogen 28 Creatinine 3.20 Random Glucose 84 Calcium Level 9.4 Magnesium Level 1.9 Sodium Level 136 Potassium Level 4.3 Chloride Level 102 Carbon Dioxide Level 25.9 Anion Gap 8 Estimat Glomerular Filtration Rate 18 Total Creatine Kinase 126 150 101 Creatine Kinase MB 1.9 1.7 1.6 Troponin I LESS THAN 0.02 LESS THAN 0.02 0.02 Result Diagram: 04/11/175 04/11/17 164 Imaging Last Impressions Chest X-Ray 04/11/171623 Signed Impressions: Service Date/Time: Tuesday, April 11, 2017 16:22 - CONCLUSION: 1. No acute cardiopulmonary disease. Hoang Gould MD Course EKG NSR, normal axis, no ST T segment changes Caprini VTE Risk Assessment Caprini VTE Risk Assessment: No/Low Risk (score <= 1) Caprini Risk Assessment Model Point Value = 1 Point Value = 2 Point Value = 3 Point Value = 5 Age 41-60 Minor surgery BMI > 25 kg/m2 Swollen legs Varicose veins or History of unexplained or recurrent spontaneous Oral contraceptives or hormone replacement Sepsis (< 1 month) Serious lung disease, including pneumonia (< 1 month) Abnormal pulmonary function Acute myocardial infarction Congestive heart failure (< 1 month) History of inflammatory bowel disease Medical patient at bed rest Age 61-74 Arthroscopic surgery Major open surgery (> 45 min) Laparoscopic surgery (> 45 min) Malignancy Confined to bed (> 72 hours) Immobilizing plaster cast Central venous access Age >= 75 History of VTE Family history of VTE Factor V Leiden Prothrombin [id number] Lupus anticoagulant Anticardiolipin antibodies Elevated serum homocysteine Heparin-induced thrombocytopenia Other congenital or acquired thrombophilia Stroke (< 1 month) Elective arthroplasty Hip, pelvis, or leg fracture Acute spinal cord injury (< 1 month) Prophylaxis Regimen Total Risk Factor Score Risk Level Prophylaxis Regimen 0-1 Low Early ambulation 2 Moderate Order ONE of the following: *Sequential Compression Device (SCD) *Heparin 5000 units SQ BID 3-4 Higher Order ONE of the following medications: *Heparin 5000 units SQ TID *Enoxaparin/Lovenox 40 mg SQ daily (WT < 150 kg, CrCl > 30 mL/min) *Enoxaparin/Lovenox 30 mg SQ daily (WT < 150 kg, CrCl > 10-29 mL/min) *Enoxaparin/Lovenox 30 mg SQ BID (WT < 150 kg, CrCl > 30 mL/min) AND/OR *Sequential Compression Device (SCD) 5 or more Highest Order ONE of the following medications: *Heparin 5000 units SQ TID (Preferred with Epidurals) *Enoxaparin/Lovenox 40 mg SQ daily (WT < 150 kg, CrCl > 30 mL/min) *Enoxaparin/Lovenox 30 mg SQ daily (WT < 150 kg, CrCl > 10-29 mL/min) *Enoxaparin/Lovenox 30 mg SQ BID (WT < 150 kg, CrCl > 30 mL/min) AND *Sequential Compression Device (SCD) Assessment and Plan Assessment and Plan #1 Atypical chest pain-ruled out with 3 sets of EKGs, cardiac enzymes, and monitored on telemetry overnight. Seen and evaluated by Dr. Teo Matos. Chest discomfort musculoskeletal in nature, does not appear to be cardiac related. Recent normal cardiac catheterization [address] Ambar Conrad, no further cardiac testing required. Will discharge this morning. Patient agreeable to plan of care. #2 Diabetes type II-continue Humulin 70/30, continue pravastatin, discussed importance of state therapy with diagnoses of diabetes despite cholesterol levels. Education on importance of tight glucose control. #3 ESRD-continue calcium/phosphate tablets, continue dialysis and nephrology appointments as previous instructed, renal diet #4 Hypertension-continue amlodipine, discussed importance of tight blood pressure control and following a low sodium diet #5 Musculoskeletal pain-may use heating pad to affected areas, both chest and left scapula area. Follow up with PCP if pain persists. Malia Wisdom Apr 12, 2017 08:56
[2017-04-12] MEDS ORDERED: ASPIRIN 325 MG TAB PO SCH (09:00)
[2017-04-12] MEDS ORDERED: PANTOPRAZOLE SOD 40 MG DELAYED RELEASE TAB PO SCH (09:00)
[2017-04-12] MEDS ORDERED: CHOLECALCIFEROL (VIT D3) 1000 UNIT TAB PO SCH (09:00)
[2017-04-12] MEDS ORDERED: PRAVASTATIN SOD 20 MG TAB PO SCH (09:00)
[2017-04-12] MEDS ORDERED: INSULIN HUMAN NPH/R 70/30 1,000 UNITS/10 ML VIAL SQ SCH (09:00)
[2017-04-12] MEDS ORDERED: CALCIUM ACETATE 667 MG CAP PO SCH (10:00)
--- NOTE | 2017-04-12 10:25 | HHI.DCPOC ---
Discharge Care Plan Diagnosis: (1) Musculoskeletal chest pain (2) ESRD (end stage renal disease) (3) Tobacco abuse Goals to Promote Your Health * To prevent worsening of your condition and complications * To maintain your health at the optimal level Directions to Meet Your Goals Take your medications as prescribed Follow your dietary instruction Follow activity as directed Keep your appointments as scheduled Take your immunizations and boosters as scheduled If your symptoms worsen call your PCP, if no PCP go to Urgent Care Center or Emergency Room Smoking is Dangerous to Your Health. Avoid second hand smoke Call the 24-hour hour crisis hotline for domestic abuse at Malia Wisdom Apr 12, 2017 10:25
--- NOTE | 2017-04-12 12:44 | EKG ---
Date Performed: 04/11/2017 Time Performed: 22:55:43 PTAGE: 57 years EKG: Sinus rhythm SHORT VT INTERVAL NO SIG CHANGE PREVIOUS TRACING : 04/11/2017 19.58 DOCTOR: Teo Matos Interpretating Date/Time 04/12/2017 12:43:03
--- NOTE | 2017-04-12 12:47 | EKG ---
Date Performed: 04/11/2017 Time Performed: 19:58:54 PTAGE: 57 years EKG: Sinus rhythm POSSIBLE LEFT ATRIAL ENLARGEMENT SEPTAL MYOCARDIAL INFARCTION NO SIG CHANGE ABNORMAL ECG PREVIOUS TRACING : 04/11/2017 16.11 DOCTOR: Teo Matos Interpretating Date/Time 04/13/2017 10:25:04
--- NOTE | 2017-04-12 12:50 | EKG ---
Date Performed: 04/11/2017 Time Performed: 16:11:29 PTAGE: 57 years EKG: Sinus rhythm POSSIBLE LEFT ATRIAL ENLARGEMENT SEPTAL MYOCARDIAL INFARCTION NO SIG CHANGE ABNORMAL ECG PREVIOUS TRACING : 11/05/2016 00.17 DOCTOR: Teo Matos Interpretating Date/Time 04/12/2017 12:48:34
== END 2017-04-12 12:02 | disposition home or self-care (01) ==
LOC: NEPD 14:24 → NEDA 18:38 → NEPHCDU 21:29
PROVIDERS: ADMIT Internal Medicine Interventional Cardiology; ATTEND Internal Medicine Interventional Cardiology
DX: R07.89 Other chest pain (principal); I12.0 Hypertensive chronic kidney disease with stage 5 chronic kidney disease or end stage renal disease; E11.22 Type 2 diabetes mellitus with diabetic chronic kidney disease; N18.6 End stage renal disease; Z99.2 Dependence on renal dialysis; Z79.4 Long term (current) use of insulin; Z72.0 Tobacco use; F31.9 Bipolar disorder, unspecified; F41.9 Anxiety disorder, unspecified; R94.31 Abnormal electrocardiogram [ECG] [EKG]; B19.20 Unspecified viral hepatitis C without hepatic coma; M19.90 Unspecified osteoarthritis, unspecified site; K21.9 Gastro-esophageal reflux disease without esophagitis; Z86.73 Personal history of transient ischemic attack (TIA), and cerebral infarction without residual deficits; Z79.899 Other long term (current) drug therapy; Z79.82 Long term (current) use of aspirin; Z79.01 Long term (current) use of anticoagulants
CPT/HCPCS: 71010; 80048; 82550; 82552; 82948; 83735; 84484; 85025; 85610; 85730; 93005; 96372; 99285; G0378; J1815

== ENCOUNTER → 2017-09-09 | Day surgery (SDC) | payer MEDICARE, MEDICAID ==
[~2017-09-09] MED LIST changes: -ASPI-110 PO; +ASPI1TAB57 PO; +ATROPINE SULFATE 1% OPHT SOLN 5 ML BTL ONE; +DEXAMETHASONE SOD PHOS 4 MG/ML VIAL ONE; +DEXTROSE 50% IN WATER 50 ML SYRINGE ONE; +EPINEPHrine HCL (1:1000) 1 MG/ML VIAL ONE; +FLURBIPROFEN 0.03% OPHT SOLN 2.5 ML BTL ONE; +HYALURONIDASE/LIDOCAINE/BUPIVACAINE 5 ML SYR ONE; +LACTATED RINGER'S 1000 ML INJ 1,000 ML ONE; +NEOMYCIN/POLYMYXIN/DEXAMETHASONE OPTH OINT 3.5 GM TUBE ONE; -PERC5TAB12 PO; +PHENYLEPHRINE HCL 2.5 % OPTH SOLN 15 ML BTL ONE; +PROPOFOL 100 MG/10 ML INJ IV ONE; +SODIUM CHLORIDE 0.9% INJ 10 ML ONE; +TETRACAINE 0.5% OPTH SOLN 4 ML BTL ONE; +TROPICAMIDE 1% OPHT SOLN 15 ML BTL ONE; +ceFAZolin INJ 1,000 MG VIAL ONE
--- NOTE | 2017-09-21 12:55 | MP ---
cc: Costa Friedman MD DATE OF OPERATION: 09/09/2017 DATE OF : 1960. PREOPERATIVE DIAGNOSIS: Proliferative diabetic retinopathy, traction retinal detachment, and nonclearing vitreous hemorrhage, right eye. POSTOPERATIVE DIAGNOSIS: Proliferative diabetic retinopathy, traction retinal detachment, and nonclearing vitreous hemorrhage, right eye. PROCEDURE PERFORMED: Pars plana vitrectomy, membrane peeling, endolaser, right eye. ANESTHESIA: MAC. SURGEON: MD Elder COMPLICATIONS: None. PROCEDURE IN DETAIL After informed consent was obtained, the patient was anesthetized with retrobulbar anesthesia in the preoperative area. He was then brought to the operating room, prepared and draped in the usual sterile fashion. A wire lid speculum was placed on the patient's right eye. 23-gauge vitrectomy cannulas were then placed in the lower temporal, supratemporal and superonasal quadrants 3-mm posterior to the corneoscleral limbus. Infusion cannula was placed lower temporally. Core vitrectomy was then performed. There were fibrovascular attachments throughout the posterior pole which were dissected free and the vitrectomies carried out as far as possible in the vitreous space. These membranes were then both delaminated and segmented and removed. After removal of all the membranes, endolaser was used to place panretinal photocoagulation. Careful indirect ophthalmoscopy with scleral depression was then performed. No peripheral breaks were noted. The three vitrectomy cannulas were then removed. Subconjunctival injections of dexamethasone and Ancef were placed, an atropine drop and Maxitrol ointment, patch and shield were then applied. The patient tolerated the procedure well. There were no complications. She will followup tomorrow in our [place] office. Costa Friedman MD TAB/SB , 10:26 AM , 10:41 AM
== END | disposition home or self-care (01) ==
LOC: ESDC 11:50
PROVIDERS: ATTEND Ophthalmology Retina Specialist
DX: E11.3531 Type 2 diabetes mellitus with proliferative diabetic retinopathy with traction retinal detachment not involving the macula, right eye (principal); H43.11 Vitreous hemorrhage, right eye; Z79.4 Long term (current) use of insulin
CPT/HCPCS: 00145; 67113; 82948; J0171; J0690; J1100; J7120